=== PATIENT | female | born 1995 | race Caucasian/White ===

== ENCOUNTER 2016-06-07 22:32 | Emergency (ER) | payer BC, MEDICAID ==
[~2016-06-07] VITALS: Ht 162.6 cm; Wt 99.0 kg
[2016-06-07 22:36] VITALS: Ht 162.6 cm; Wt 99.0 kg
== END 2016-06-08 02:25 | disposition left against medical advice (07) ==
LOC: FTE 22:32
DX: Z53.21 Procedure and treatment not carried out due to patient leaving prior to being seen by health care provider (principal)